=== PATIENT | male | born 1995 | race Asian ===

== ENCOUNTER 2021-04-29 13:29 | Outpatient (REF) | payer SELFPAY ==
--- NOTE | 2021-04-29 15:02 | MHC.AU.CER ---
Cerumen Removal- Binaural Date of Visit: 04/29/21 Medical Conditions: No Medical conditions of Concern for Cerumen Removal Medications: No Medications of Concern for Cerumen Removal Patient states he put a Q-Tip in his right ear this morning and thinks he pushed the wax further in because his ear feels blocked now. Procedure: Right Ear: Unusual Findings: Deeply Impacted Cerumen Prior to Removal: Complete Occlusion Outcome of Procedure: Cerumen was easily removed. All cerumen was removed. Tympanic membrane is now visible. Other: Used lighted curette and suction. Left Ear: Unusual Findings: Deeply Impacted Cerumen Prior to Removal: Complete Occlusion Outcome of Procedure: Cerumen was easily removed. All cerumen was removed. Tympanic membrane is now visible. Other: Used lighted curette and suction Recommendations: Recommendations: Use of cerumen drops, such as Debrox or EarWaxMD on a routine monthly basis. Recommend returning in six months to monitor wax build-up. Diagnosis Code(s): Primary Diagnosis: H69.93 Unspecified Eustachian Tube Dysfunction, Bilateral Signature: Provider: Murray Rodarte, CCC-A
--- NOTE | 2021-04-29 15:05 | MHC.AU.CER ---
Cerumen Removal- Binaural Date of Visit: 04/29/21 Medical Conditions: No Medical Conditions of Concern for Cerumen Removal Medications: No Medications of Concern for Cerumen Removal Patient reports he used a Q-Tip in the right ear this morning and feels he pushed the wax further in because his ear now feels blocked. Procedure: Right Ear: Unusual Findings: Deeply Impacted Cerumen Prior to Removal: Complete Occlusion Outcome of Procedure: Cerumen was easily removed. All cerumen was removed. Tympanic membrane is now visible. Other: Used lighted curette and suction. Left Ear: Unusual Findings: Deeply Impacted Cerumen Prior to Removal: Complete Occlusion Outcome of Procedure: Cerumen was easily removed. All cerumen was removed. Tympanic membrane is now visible. Other: Used lighted curette and suction Recommendations: Recommendations: Use of cerumen drops, such as Debrox or EarWaxMD on a routine monthly basis. Recommend returning in six months to monitor wax build-up. Diagnosis Code(s): Primary Diagnosis: H61.23 Impacted Cerumen, Bilateral Signature: Provider: Murray Rodarte, [facility]
== END 2021-04-29 13:30 | disposition home or self-care (01) ==
LOC: HO.HAP 13:29
DX: Z46.1 Encounter for fitting and adjustment of hearing aid (principal); H69.93 Unspecified Eustachian tube disorder, bilateral
CPT/HCPCS: 92700

== ENCOUNTER 2023-07-06 15:01 | Outpatient (REF) | payer SELFPAY | END 2023-07-06 15:02 | disposition home or self-care (01) | LOC: HO.HAP 15:01 | PROVIDERS: Visit Provider Internal Medicine | DX: H61.22 Impacted cerumen, left ear (principal) | CPT/HCPCS: 92700 ==

== ENCOUNTER 2025-03-21 10:25 | Outpatient (REF) | payer SELFPAY ==
--- NOTE | 2025-03-21 11:08 | MHC.AU.CER ---
Cerumen Removal- Binaural Date of Visit: 03/21/25 Medical Conditions: No Conditions of Concern for Cerumen Removal Medications: No Medications of Concern for Cerumen Removal Procedure: Right Ear: Other: Right ear clear, cerumen removal not needed. Left Ear: Unusual Findings: None Prior to Removal: Moderate Cerumen Present Outcome of Procedure: Cerumen was easily removed All cerumen was removed. Other: Cerumen removed with lighted curette without incidence. Recommendations: Recommendations (Other): Rey reports difficulty hearing in groups and noisy situations, recommended contacting PCP to have PO for hearing evaluation sent. Diagnosis Code(s): Primary Diagnosis: H61.22 Impacted Cerumen, Left Ear Services Performed: Cerumen Removal (CPT 40676) One Ear Signature: Provider: Samy Chavez, [facility]
== END 2025-03-21 10:26 | disposition home or self-care (01) ==
LOC: HO.HAP 10:25
DX: Z46.1 Encounter for fitting and adjustment of hearing aid (principal); H61.22 Impacted cerumen, left ear
CPT/HCPCS: 92700